=== PATIENT | male | born 1955 | race Caucasian/White ===

== ENCOUNTER → 2016-08-08 | Outpatient (CLI) | payer BC, OTHER ==
--- NOTE | 2016-08-08 16:36 | REP ---
Clinical: Pain. Technique: Internal rotation, external rotation, and Y view. Findings: Osteophytosis and cortical irregularity at the acromioclavicular joint is appreciated along with subtle heterogeneous changes to the glenoid rim and small calcified lipping. No acute fracture dislocation. Impression: Moderate osteoarthritic degenerative changes. Signed by oRbin Song MD 08/08/2016 04:27 P
== END ==
LOC: M WUC 15:49
PROVIDERS: ATTEND Nurse Practitioner Family
DX: M19.011 Primary osteoarthritis, right shoulder (principal)

== ENCOUNTER 2019-08-05 18:19 | Emergency (ER) | payer BC, OTHER ==
[~2019-08-05] VITALS: Ht 188 cm; Wt 124.1 kg
[2019-08-05] MEDS ORDERED: PRIL20TA2 PO (18:27)
[2019-08-05] MEDS ORDERED: ATOR1TAB21 (18:27)
[2019-08-05] MEDS ORDERED: IBUP-1022 PO (19:53)
--- NOTE | 2019-08-05 19:53 | REP ---
Clinical: Trauma. Slipped on ice. Technique: AP, lateral, bilateral oblique views of the right ankle. Findings: Lateral swelling consist with inversion injury. No acute fracture or dislocation. Ankle mortise intact. Impression: Lateral swelling. No acute fracture or dislocation. Electronically Signed by Robin Song MD 08/05/2019 07:45 P
[2019-08-05 19:56] VITALS: BP 165/99
== END 2019-08-05 19:58 | disposition home or self-care (01) ==
LOC: M ED 18:19
DX: S93.401A Sprain of unspecified ligament of right ankle, initial encounter (principal); Z88.0 Allergy status to penicillin; W18.09XA Striking against other object with subsequent fall, initial encounter; Y92.9 Unspecified place or not applicable; Y99.8 Other external cause status; E78.00 Pure hypercholesterolemia, unspecified; Z79.899 Other long term (current) drug therapy; M79.89 Other specified soft tissue disorders

== ENCOUNTER → 2019-09-23 | Outpatient (REF) | payer OTHER ==
[~2019-09-23] MED LIST: ATOR1TAB21; IBUP-1022 PO; PRIL20TA2 PO
== END ==
LOC: M LAB REF 11:58
PROVIDERS: ATTEND Internal Medicine
DX: Z00.00 Encounter for general adult medical examination without abnormal findings (principal)

== ENCOUNTER → 2020-11-28 | Outpatient (CLI) | payer OTHER ==
[~2020-11-28] MED LIST changes: -ATOR1TAB21; +ATOR1TAB21 PO; +FAMO40TA3 PO
== END ==
LOC: M LABSMTC 08:19
PROVIDERS: ATTEND Anesthesiology
DX: Z01.812 Encounter for preprocedural laboratory examination (principal); Z20.822 Contact with and (suspected) exposure to COVID-19

== ENCOUNTER 2020-12-03 08:19 | Day surgery (SDC) | payer BC, OTHER ==
[~2020-12-03] VITALS: Ht 185.4 cm; Wt 117.4 kg
[~2020-12-03 08:19] MED LIST changes: +NS 1,000 ML IV ONE
[2020-12-03] MEDS ORDERED: LIDOCAINE 2% 100MG/5ML SDV (FOR ANES.) As Ordered ONE (08:41)
[2020-12-03] MEDS ORDERED: propofoL 200 MG/20 ML VIAL As Ordered ONE (08:41)
[2020-12-03] MEDS ORDERED: fentaNYL 100 MCG/2 ML INJECTION (J3010) As Ordered ONE (09:08)
--- NOTE | 2020-12-03 09:19 | ROOR ---
Patient Name: Venancio Tomlin Procedure Date: 12/03/2020 9:06 AM Date of : 1955 Age: 65 Room: [facility] Gender: Male Note Status: Finalized Procedure: Upper GI endoscopy Indications: Suspected esophageal reflux Providers: Elmo Hicks Jr, MD Referring MD: JORDAN FORD JR, MD Requesting Provider: Medicines: Propofol per Anesthesia Complications: No immediate complications. Procedure: Pre-Anesthesia Assessment: - Prior to the procedure, a History and Physical was performed, and patient medications and allergies were reviewed. The patient is competent. The risks and benefits of the procedure and the sedation options and risks were discussed with the patient. All questions were answered and informed consent was obtained. Patient identification and proposed procedure were verified by the physician and the nurse in the pre-procedure area and in the procedure room. Mental Status Examination: alert and oriented. Airway Examination: normal oropharyngeal airway and neck mobility. Respiratory Examination: clear to auscultation. CV Examination: normal. ASA Grade Assessment: II - A patient with mild systemic disease. After reviewing the risks and benefits, the patient was deemed in satisfactory condition to undergo the procedure. The anesthesia plan was to use moderate sedation / analgesia (conscious sedation). Immediately prior to administration of medications, the patient was re-assessed for adequacy to receive sedatives. The heart rate, respiratory rate, oxygen saturations, blood pressure, adequacy of pulmonary ventilation, and response to care were monitored throughout the procedure. The physical status of the patient was re-assessed after the procedure. The Endoscope was introduced through the mouth, and advanced to the second part of duodenum. The upper GI endoscopy was accomplished without difficulty. The patient tolerated the procedure well. Findings: The upper third of the esophagus, middle third of the esophagus and lower third of the esophagus were normal. The cardia, gastric fundus, gastric body, gastric antrum, prepyloric region of the stomach and pylorus were normal. The duodenal bulb, first portion of the duodenum and second portion of the duodenum were normal. Impression: - Normal upper third of esophagus, middle third of esophagus and lower third of esophagus. - Normal cardia, gastric fundus, gastric body, antrum, prepyloric region of the stomach and pylorus. - Normal duodenal bulb, first portion of the duodenum and second portion of the duodenum. - No specimens collected. Recommendation: - Discharge patient to home (ambulatory). Procedure Code(s): --- Professional --- 30350, Esophagogastroduodenoscopy, flexible, transoral; diagnostic, including collection of specimen(s) by brushing or washing, when performed (separate procedure) Diagnosis Code(s): --- Professional --- K21.9, Gastro-esophageal reflux disease without esophagitis CPT copyright 2019 [employer]. All rights reserved. The codes documented in this report are preliminary and upon paving crew foreman review may be revised to meet current compliance requirements. Elmo Hicks MD Elmo Hicks Jr, MD 12/03/2020 9:19:19 AM Electronically signed by Elmo Hicks Jr, MD Number of Addenda: 0 Note Initiated On: 12/03/2020 9:06 AM Estimated Blood Loss: Estimated blood loss: none.
--- NOTE | 2020-12-03 09:32 | ROOR ---
Patient Name: Venancio Tomlin Procedure Date: 12/03/2020 9:06 AM Date of : 1955 Age: 65 Room: [facility] Gender: Male Note Status: Finalized Procedure: Colonoscopy Indications: Screening in patient at increased risk: Family history of 1st-degree relative with colorectal cancer Providers: Elmo Hicks Jr, MD Referring MD: JORDAN FORD JR, MD Requesting Provider: Medicines: Propofol per Anesthesia Complications: No immediate complications. Procedure: Pre-Anesthesia Assessment: - Prior to the procedure, a History and Physical was performed, and patient medications and allergies were reviewed. The patient is competent. The risks and benefits of the procedure and the sedation options and risks were discussed with the patient. All questions were answered and informed consent was obtained. Patient identification and proposed procedure were verified by the physician and the nurse in the pre-procedure area and in the procedure room. Mental Status Examination: alert and oriented. Airway Examination: normal oropharyngeal airway and neck mobility. Respiratory Examination: clear to auscultation. CV Examination: normal. ASA Grade Assessment: II - A patient with mild systemic disease. After reviewing the risks and benefits, the patient was deemed in satisfactory condition to undergo the procedure. The anesthesia plan was to use moderate sedation / analgesia (conscious sedation). Immediately prior to administration of medications, the patient was re-assessed for adequacy to receive sedatives. The heart rate, respiratory rate, oxygen saturations, blood pressure, adequacy of pulmonary ventilation, and response to care were monitored throughout the procedure. The physical status of the patient was re-assessed after the procedure. The Colonoscope was introduced through the anus and advanced to the cecum, identified by appendiceal orifice and ileocecal valve. The colonoscopy was performed without difficulty. The patient tolerated the procedure well. The quality of the bowel preparation was adequate. Findings: The rectum, recto-sigmoid colon, ascending colon, cecum, appendiceal orifice and ileocecal valve appeared normal. Two polyps were found in the descending colon and transverse colon. The polyps were small in size. These polyps were removed with a cold snare. Resection and retrieval were complete. Scattered small-mouthed diverticula were found in the sigmoid colon. Impression: - The rectum, recto-sigmoid colon, ascending colon, cecum, appendiceal orifice and ileocecal valve are normal. - Two small polyps in the descending colon and in the transverse colon, removed with a cold snare. Resected and retrieved. - Diverticulosis in the sigmoid colon. Recommendation: - Discharge patient to home (ambulatory). - Repeat colonoscopy in 5 years for surveillance. Procedure Code(s): --- Professional --- 15115, Colonoscopy, flexible; with removal of tumor(s), polyp(s), or other lesion(s) by snare technique Diagnosis Code(s): --- Professional --- Z80.0, Family history of malignant neoplasm of digestive organs K63.5, Polyp of colon K57.30, Diverticulosis of large intestine without perforation or abscess without bleeding CPT copyright 2019 [employer]. All rights reserved. The codes documented in this report are preliminary and upon marker machine review may be revised to meet current compliance requirements. Elmo Hicks MD Elmo Hicks Jr, MD 12/03/2020 9:32:35 AM Electronically signed by Elmo Hicks Jr, MD Number of Addenda: 0 Note Initiated On: 12/03/2020 9:06 AM Estimated Blood Loss: Estimated blood loss: none.
[2020-12-03 09:55] VITALS: BP 129/73
== END 2020-12-03 10:01 | disposition home or self-care (01) ==
LOC: M OPP 08:19
PROVIDERS: ATTEND Surgery
DX: Z12.11 Encounter for screening for malignant neoplasm of colon (principal); Z80.0 Family history of malignant neoplasm of digestive organs; D12.6 Benign neoplasm of colon, unspecified; K57.30 Diverticulosis of large intestine without perforation or abscess without bleeding; K21.9 Gastro-esophageal reflux disease without esophagitis; F17.210 Nicotine dependence, cigarettes, uncomplicated; Z79.899 Other long term (current) drug therapy; Z88.0 Allergy status to penicillin
CPT/HCPCS: 43235; 45385; 88305; J3010

== ENCOUNTER → 2021-06-05 | Outpatient (CLI) | payer BC, OTHER ==
[~2021-06-05] MED LIST changes: -NS 1,000 ML IV ONE
== END ==
LOC: M RAD 11:34
PROVIDERS: ATTEND Nurse Practitioner Family
DX: S80.211A Abrasion, right knee, initial encounter (principal); W11.XXXA Fall on and from ladder, initial encounter; Y92.9 Unspecified place or not applicable; Y93.9 Activity, unspecified; Y99.9 Unspecified external cause status; M17.11 Unilateral primary osteoarthritis, right knee; R93.6 Abnormal findings on diagnostic imaging of limbs

== ENCOUNTER → 2021-11-03 | Outpatient (REF) | payer OTHER, BC ==
[2021-11-03 13:27] LABS: C REACTIVE PROTEIN QUANTITATIV 0.65 MG/DL (0.00-0.30); RHEUMATOID FACTOR QUANT < 10.0 IU/ML (<15.0); URIC ACID 5.9 MG/DL (3.5-7.2)
== END ==
LOC: M LAB REF 12:26
PROVIDERS: ATTEND Internal Medicine
DX: M25.50 Pain in unspecified joint (principal)

== ENCOUNTER → 2021-11-04 | Outpatient (CLI) | payer BC, OTHER | LOC: M WUC 15:26 | PROVIDERS: ATTEND Internal Medicine | DX: M16.0 Bilateral primary osteoarthritis of hip (principal) ==

== ENCOUNTER → 2022-03-04 | Outpatient (REF) | payer OTHER ==
[2022-03-04 14:01] LABS: APPEARANCE, URINE MANUAL CLEAR (CLEAR); BILIRUBIN, URINE MANUAL NEGATIVE (NEGATIVE); BLOOD URINE MANUAL NEGATIVE (NEGATIVE); COLOR, URINE MANUAL YELLOW (YELLOW); GLUCOSE, URINE (UA) MANUAL NEGATIVE (NEGATIVE); KETONE, URINE MANUAL NEGATIVE (NEGATIVE); LEUKOCYTE ESTERASE, URINE MAN NEGATIVE (NEGATIVE); NITRITE, URINE MANUAL NEGATIVE (NEGATIVE); PROTEIN, URINE MANUAL NEGATIVE (NEGATIVE); UROBILINOGEN, URINE MANUAL NORMAL (NORMAL)
[2022-03-04 14:11] LABS: BASO % 0.7 % (0.0-1.0); EOS # 0.1 10^3/uL (0.0-0.5); EOS % 2.1 % (0.0-3.0); HEMATOCRIT 45.2 % (42.0-52.0); LYMPH # 1.4 10^3/uL (1.5-5.0); LYMPH % 23.5 % (24.0-44.0); MEAN CORPUSCULAR HEMOGLOBIN 29.8 pg (27.0-33.0); MEAN CORPUSCULAR HGB CONC 33.2 g/dl (32.0-36.5); MEAN CORPUSCULAR VOLUME 89.7 fl (80.0-96.0); MONO # 0.4 10^3/uL (0.0-0.8); MONO % 6.6 % (2.0-8.0); NEUTROPHILS # 3.9 10^3/uL (1.5-8.5); NEUTROPHILS % 66.9 % (36.0-66.0); PLATELET COUNT, AUTOMATED 198 10^3/uL (150-450); RED BLOOD COUNT 5.04 10^6/uL (4.30-6.10); WHITE BLOOD COUNT 5.8 10^3/uL (4.0-10.0)
[2022-03-04 14:43] LABS: ERYTHROCYTE SEDIMENTATION RATE 8 mm/hr (0-20)
[2022-03-04 15:08] LABS: ALBUMIN 3.7 GM/DL (3.2-5.2); ALT/SGPT 23 U/L (12-78); BILIRUBIN,DIRECT 0.2 MG/DL (0.0-0.2); BILIRUBIN,TOTAL 0.5 MG/DL (0.2-1.0); BLOOD UREA NITROGEN 14 MG/DL (7-18); C REACTIVE PROTEIN QUANTITATIV 0.56 MG/DL (0.00-0.30); CALCIUM LEVEL 9.1 MG/DL (8.8-10.2); CARBON DIOXIDE LEVEL 28 MEQ/L (21-32); CHLORIDE LEVEL 106 MEQ/L (98-107); COMPLEMENT C3 130 MG/DL (90-180); COMPLEMENT C4 36 MG/DL (10-40); GLOMERULAR FILTRATION RATE > 60.0 (>49); GLUCOSE, FASTING 72 MG/DL (70-100); POTASSIUM SERUM 4.1 MEQ/L (3.5-5.1); SODIUM LEVEL 138 MEQ/L (136-145); TOTAL PROTEIN 6.7 GM/DL (6.4-8.2)
[2022-03-04 15:21] LABS: TOTAL PROTEIN,RANDOM URINE 14.4 MG/DL (0.0-12.0)
== END ==
LOC: M SFHCRHEU 10:44
PROVIDERS: ATTEND Internal Medicine
DX: M06.4 Inflammatory polyarthropathy (principal)

== ENCOUNTER → 2022-03-28 | Outpatient (CLI) | payer BC, OTHER | LOC: M ADAMS 10:37 | PROVIDERS: ATTEND Internal Medicine | DX: M06.4 Inflammatory polyarthropathy (principal); M75.81 Other shoulder lesions, right shoulder; M77.31 Calcaneal spur, right foot; M77.32 Calcaneal spur, left foot; M19.071 Primary osteoarthritis, right ankle and foot; M19.072 Primary osteoarthritis, left ankle and foot; M19.041 Primary osteoarthritis, right hand; M19.042 Primary osteoarthritis, left hand; M19.011 Primary osteoarthritis, right shoulder; M19.031 Primary osteoarthritis, right wrist; M19.032 Primary osteoarthritis, left wrist ==

== ENCOUNTER → 2022-04-25 | Outpatient (CLI) | payer BC, OTHER | LOC: M PLAIMG 08:52 | PROVIDERS: ATTEND Internal Medicine | DX: M54.9 Dorsalgia, unspecified (principal); M46.1 Sacroiliitis, not elsewhere classified; M16.0 Bilateral primary osteoarthritis of hip; M47.816 Spondylosis without myelopathy or radiculopathy, lumbar region; M70.61 Trochanteric bursitis, right hip ==

== ENCOUNTER 2022-12-17 04:23 | Emergency (ER) | payer MEDICARE, BC, OTHER ==
[~2022-12-17] VITALS: Ht 185.4 cm; Wt 112.1 kg
[2022-12-17 04:23] VITALS: TEMP 96.8
[2022-12-17] MEDS ORDERED: METO25TA4 PO (04:35)
[2022-12-17] MEDS ORDERED: CLOP75TA2 PO (04:35)
[2022-12-17] MEDS ORDERED: VALS1TAB66 PO (04:35)
[2022-12-17 05:26] LABS: BASO % 0.2 % (0.0-1.0); EOS # 0.1 10^3/uL (0.0-0.5); EOS % 1.3 % (0.0-3.0); HEMATOCRIT 41.5 % (42.0-52.0); HEMOGLOBIN 14.1 g/dl (13.5-17.5); LYMPH # 1.6 10^3/uL (1.5-5.0); LYMPH % 32.8 % (24.0-44.0); MEAN CORPUSCULAR HEMOGLOBIN 30.6 pg (27.0-33.0); MONO # 0.7 10^3/uL (0.0-0.8); NEUTROPHILS # 2.4 10^3/uL (1.5-8.5); NEUTROPHILS % 51.5 % (36.0-66.0); PLATELET COUNT, AUTOMATED 146 10^3/uL (150-450); RED BLOOD COUNT 4.61 10^6/uL (4.30-6.10); WHITE BLOOD COUNT 4.7 10^3/uL (4.0-10.0)
[2022-12-17 05:42] LABS: CPK CREATINE PHOSPHOKINASE 70 U/L (46-171)
[2022-12-17 05:43] LABS: ALBUMIN 3.7 G/DL (3.2-5.2); ALKALINE PHOSPHATASE 99 U/L (46-116); ALT/SGPT 31 U/L (7.0-40); AST/SGOT 21 U/L (<34); BILIRUBIN,DIRECT 0.2 MG/DL (<0.4); BILIRUBIN,TOTAL 0.5 MG/DL (0.3-1.2); BLOOD UREA NITROGEN 15 MG/DL (9-23); CALCIUM LEVEL 8.9 MG/DL (8.3-10.6); CARBON DIOXIDE LEVEL 23 MMOL/L (20-31); CHLORIDE LEVEL 108 MMOL/L (98-107); CREATININE FOR GFR 0.78 MG/DL (0.70-1.30); GLOMERULAR FILTRATION RATE > 60.0 (>49); GLUCOSE, FASTING 107 MG/DL (74-106); MB/CK RELATIVE INDEX 1.42 (< OR =4); POTASSIUM SERUM 3.8 MMOL/L (3.5-5.1); SODIUM LEVEL 139 MMOL/L (136-145); TOTAL PROTEIN 6.3 G/DL (5.7-8.2)
[2022-12-17 05:56] LABS: RSV AMPLIFICATION NEGATIVE (NEGATIVE)
[2022-12-17 06:45] VITALS: BP 136/83; O2SAT 97
[2022-12-17] MEDS ORDERED: AFRISPR3 (06:59)
[2022-12-17] MEDS ORDERED: MUCI1TAB16 PO (06:59)
[2022-12-17] MEDS ORDERED: FLON1SPR NARES (06:59)
[2022-12-17] MEDS ORDERED: BENZ200C70 PO (06:59)
[2022-12-17] MEDS ORDERED: CETI10CH PO (06:59)
== END 2022-12-17 07:25 | disposition home or self-care (01) ==
LOC: M ED 04:23
DX: J06.9 Acute upper respiratory infection, unspecified (principal); R09.81 Nasal congestion; R09.89 Other specified symptoms and signs involving the circulatory and respiratory systems; E78.5 Hyperlipidemia, unspecified; F17.200 Nicotine dependence, unspecified, uncomplicated; Z79.899 Other long term (current) drug therapy; Z88.0 Allergy status to penicillin

== ENCOUNTER → 2023-02-16 | Outpatient (CLI) | payer MEDICARE, BC, OTHER ==
[~2023-02-16] MED LIST changes: +AFRISPR3; +BENZ200C70 PO; +CETI10CH PO; +CLOP75TA2 PO; +FLON1SPR NARES; +METO25TA4 PO; +MUCI1TAB16 PO; +VALS1TAB66 PO
== END ==
LOC: M WUC 10:14
PROVIDERS: ATTEND Student in an Organized Health Care Education/Training Program
DX: M54.2 Cervicalgia (principal); M47.812 Spondylosis without myelopathy or radiculopathy, cervical region; M25.78 Osteophyte, vertebrae

== ENCOUNTER → 2023-11-22 | Outpatient (CLI) | payer MEDICARE, BC ==
[~2023-11-22] MED LIST changes: +GASTROGRAFIN SOLUTION 30ML As Ordered ONE; +ISOVUE-370 76% 100ML VIAL As Ordered ONE
== END ==
LOC: M RAD 14:38
PROVIDERS: ATTEND Internal Medicine
DX: R10.12 Left upper quadrant pain (principal); K57.30 Diverticulosis of large intestine without perforation or abscess without bleeding; N40.0 Benign prostatic hyperplasia without lower urinary tract symptoms
CPT/HCPCS: 74178; Q9963; Q9967

== ENCOUNTER 2024-01-11 10:54 | Day surgery (SDC) | payer MEDICARE, BC ==
[~2024-01-11] VITALS: Ht 185.4 cm; Wt 110.7 kg
[~2024-01-11 10:54] MED LIST changes: +ATOR80TA59 PO; +EZET10TA21 PO; -GASTROGRAFIN SOLUTION 30ML As Ordered ONE; -ISOVUE-370 76% 100ML VIAL As Ordered ONE; +MELO15TA28 PO; +METO1TAB87 PO
[2024-01-11] MEDS ORDERED: LIDOCAINE 2% 100MG/5ML SDV (FOR ANES.) As Ordered ONE (11:18)
[2024-01-11] MEDS ORDERED: fentaNYL 100 MCG/2 ML INJECTION As Ordered ONE (11:18)
[2024-01-11] MEDS ORDERED: propofoL 200 MG/20 ML VIAL As Ordered ONE (11:18)
[2024-01-11 11:44] VITALS: TEMP 98.6
[2024-01-11 12:06] VITALS: BP 141/91; O2SAT 97
== END 2024-01-11 12:24 | disposition home or self-care (01) ==
LOC: M OPP 10:54
PROVIDERS: ATTEND Surgery
DX: Z12.11 Encounter for screening for malignant neoplasm of colon (principal); Z86.010 Personal history of colon polyps; Z80.0 Family history of malignant neoplasm of digestive organs; D12.6 Benign neoplasm of colon, unspecified; K57.30 Diverticulosis of large intestine without perforation or abscess without bleeding; K63.89 Other specified diseases of intestine; K31.89 Other diseases of stomach and duodenum; K30 Functional dyspepsia; F17.200 Nicotine dependence, unspecified, uncomplicated; Z95.5 Presence of coronary angioplasty implant and graft; G47.30 Sleep apnea, unspecified; Z79.02 Long term (current) use of antithrombotics/antiplatelets; Z79.1 Long term (current) use of non-steroidal anti-inflammatories (NSAID); Z79.52 Long term (current) use of systemic steroids; Z79.899 Other long term (current) drug therapy; Z88.0 Allergy status to penicillin
CPT/HCPCS: 43239; 45380; 45385; 88305; J3010